=== PATIENT | male | born 2000 | race Caucasian/White ===

== ENCOUNTER 2018-02-11 09:05 | Emergency (ER) | payer SELFPAY ==
[2018-02-11 09:07] VITALS: BP 121/73; PULSE 78; RESP 14; TEMP 98.3; O2SAT 97
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
[2018-02-11] MEDS ORDERED: IBUPROFEN 800 MG TAB PO ONE (09:30)
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
[2018-02-11] MEDS ORDERED: LIDOCAINE HCL 1% 50 ML VIAL INFIL ONE (10:00)
[2018-02-11] MEDS ORDERED: LIDOCAINE HCL 1% PF 30 ML VIAL ONE (10:19)
[2018-02-11] MEDS ORDERED: IBUP1TAB7 PO (11:30)
--- NOTE | 2018-02-11 11:32 | RADRPT ---
EXAM DATE: 02/11/2018 11:28 AM EDT AGE/SEX: 17 years / Male INDICATIONS: Post Reduction. Trauma. CLINICAL DATA: This is the patient's subsequent encounter. Patient reports that signs and symptoms h ave been present for 1 day and indicates a pain score of 10/10. MEDICAL/SURGICAL HISTORY: None. None. COMPARISON: [facility] [place], HAND RIGHT COMPLETE ([id number]), 02/11/2018. . FINDINGS: On this postreduction study there continues to be good alignment of the fractures of the body of the fifth metacarpal. There continues to be some posterior displacement involving the fracture through th e fourth metacarpal. There is some overlying cast material in place as a splint. No new fractures are demonstrated. No significant change compared to the earlier study. CONCLUSION: No significant change in the alignment and position of the fractures involving the fourth and fifth m etacarpals compared to the prior study. Electronically signed by: Tony Gillespie MD 02/11/2018 11:31 AM EDT
[2018-02-11 11:39] VITALS: BP 117/74
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
== END 2018-02-11 11:49 | disposition home or self-care (01) ==
LOC: NEPD 09:05
DX: S62.324A Displaced fracture of shaft of fourth metacarpal bone, right hand, initial encounter for closed fracture (principal); S62.356A Nondisplaced fracture of shaft of fifth metacarpal bone, right hand, initial encounter for closed fracture; W22.01XA Walked into wall, initial encounter
CPT/HCPCS: 26605; 73130